=== PATIENT | female | born 1990 | race African-American/Black ===

== ENCOUNTER 2022-01-23 18:27 | Emergency (ER) | payer SELFPAY ==
[~2022-01-23] VITALS: Ht 170.2 cm; Wt 86.2 kg
[2022-01-23] MEDS ORDERED: ACETAMINOPHEN 325 MG TAB PO STA (18:40)
[2022-01-23 19:02] LABS: CLARITY,URINE SL CLOUDY (CLEAR); COLOR,URINE AMBER (YELLOW); KETONES,URINE NEGATIVE (NEGATIVE); LEUKOCYTE ESTERASE ,URINE NEGATIVE (NEGATIVE); NITRITE,URINE POSITIVE (NEGATIVE); PROTEIN,URINE DIPSTICK NEGATIVE (NEGATIVE); URINE UROBILINOGEN 1 mg/dL (0.2 - 1)
[2022-01-23 19:12] LABS: BACTERIA,URINE FEW /HPF
[2022-01-23] MEDS ORDERED: IBUPROFEN 600 MG TAB PO STA (19:32)
[2022-01-23 20:58] VITALS: BP 105/58
== END 2022-01-23 20:50 | disposition home or self-care (01) ==
LOC: ER 18:35
DX: R10.84 Generalized abdominal pain (principal); B34.9 Viral infection, unspecified; D25.9 Leiomyoma of uterus, unspecified; Z20.822 Contact with and (suspected) exposure to COVID-19; F17.210 Nicotine dependence, cigarettes, uncomplicated
CPT/HCPCS: 74176; 81001; 81025; 99283; U0002